=== PATIENT | male | born 1965 | race Caucasian/White ===

== ENCOUNTER 2024-07-03 07:47 | Inpatient (IN) | payer MEDICAID ==
[~2024-07-03] VITALS: Ht 185.4 cm; Wt 92.1 kg
[2024-07-03 07:59] VITALS: BP 170/71
[2024-07-03] MEDS ORDERED: LORAZEPAM1 MG PO (08:18)
[2024-07-03] MEDS ORDERED: MIRTAZAPINE15 M2 PO (08:18)
[2024-07-03] MEDS ORDERED: CLONIDINE HCL0.2 MG PO (08:20)
[2024-07-03] MEDS ORDERED: AMLODIPINE BESYL5 MG PO (08:21)
[2024-07-03] MEDS ORDERED: INSULIN LI100 UNIT/2 SC (08:22)
[2024-07-03] MEDS ORDERED: LANTUS SOL100 UNIT/1 SC (08:22)
[2024-07-03] MEDS ORDERED: VITAMIN D31250 MC1 PO (08:23)
[2024-07-03] MEDS ORDERED: RENVELA800 MG PO (08:25)
[2024-07-03 08:40] LABS: BASO # 0.1 10*3/uL (0.0-0.1); BASO % 0.6 % (0.0-1.0); EOS # 0.3 10*3/uL (0.0-0.4); HEMATOCRIT 29.5 % (42.0-52.0); LYMPH # 1.7 10*3/uL (1.3-4.4); LYMPH % 17.1 % (27.0-41.0); MEAN CELL VOLUME 102.4 fl (80.0-94.0); MEAN CORPUSCULAR HGB 34.4 pg (27.0-31.0); MEAN CORPUSCULAR HGB CONC 33.6 g/dl (33.0-37.0); MEAN PLATELET VOLUME 9.9 fl (9.6-12.3); MONO % 10.1 % (3.0-9.0); NEUT # 6.8 10*3/uL (2.3-7.9); NEUT % 68.9 % (47.0-73.0); PLATELET COUNT AUTOMATED 175 10*3/uL (130-400); RED BLOOD COUNT 2.88 10*6/uL (4.50-5.90); RED CELL DISTRI WIDTH 13.9 % (0-14.5); WHITE BLOOD COUNT 9.9 10*3/uL (4.8-10.8)
[2024-07-03 08:54] LABS: BILIRUBIN Negative (Negative); BLOOD 1+ (Negative); CLARITY Clear (Clear); COLOR Yellow (Yellow); GLUCOSE 1+ (Negative); KETONE Negative (Negative); LEUKO ESTERASE Negative (Negative); NITRITE Negative (Negative); SPECIFIC GRAVITY 1.015 (1.001-1.030); UROBILINOGEN 0.2 E.U./dl (0.0-1.0)
[2024-07-03 09:02] LABS: URINE AMPHETAMINES Negative (1000ng/ml); URINE BARBITURATES Negative (200ng/ml); URINE BENZODIAZEPINES Negative (200ng/ml); URINE CANNABINOIDS (THC) Negative (50ng/ml); URINE COCAINE Negative (300ng/ml); URINE METHADONE Negative (300ng/ml); URINE OPIATES Negative (300ng/ml); URINE PHENCYCLIDINE Negative (25ng/ml)
[2024-07-03 09:05] LABS: POTASSIUM 3.9 mmol/L (3.4-5.1)
[2024-07-03 09:24] LABS: BACTERIA TRACE
[2024-07-03] MEDS ORDERED: AMMONIUM LACTA227 GM T (10:03)
[2024-07-03] MEDS ORDERED: ASPIRIN CHEWABL81 MG PO (10:04)
[2024-07-03] MEDS ORDERED: ATORVASTATIN CA40 M1 PO (10:06)
[2024-07-03] MEDS ORDERED: DOCUSATE SODIU100 M3 PO (10:09)
[2024-07-03] MEDS ORDERED: LACTULOSE10 GM/151 PO (10:10)
[2024-07-03] MEDS ORDERED: MELATONIN10 M4 PO (10:12)
[2024-07-03] MEDS ORDERED: Fluoxetine Hydrochloride 20 MG CAP PO SCH (10:12)
[2024-07-03] MEDS ORDERED: PARICALCITOL PO (10:13)
[2024-07-03] MEDS ORDERED: [UNRECOGNIZED DRUG - OTHER] PO (10:14)
[2024-07-03] MEDS ORDERED: SENNA-LAX8.6 MG PO (10:16)
[2024-07-03] MEDS ORDERED: Ondansetron Hydrochloride 4 MG/2 ML VIAL IV PRN (11:40)
[2024-07-03] MEDS ORDERED: ACETAMINOPHEN 325 MG TAB PO PRN (11:40)
[2024-07-03] MEDS ORDERED: DEXTROSE 10 % IN WATER 250 ML IV PRN (11:40)
[2024-07-03] MEDS ORDERED: Acetaminophen/Hydrocodone 5 MG/325 MG TABLET PO PRN (11:40)
[2024-07-03] MEDS ORDERED: LACTULOSE 20 GM/30 ML UDC PO PRN (12:20)
[2024-07-03 15:35] VITALS: BP 152/68
[2024-07-03 16:00] VITALS: BP 142/66
[2024-07-03] MEDS ORDERED: INSULIN LISPRO 1 UNIT/0.01 ML SQ SCH (16:30)
[2024-07-03] MEDS ORDERED: Sevelamer Hydrochloride 800 MG TAB PO SCH (17:00)
[2024-07-03] MEDS ORDERED: ATORVASTATIN CALCIUM 40 MG TABLET PO SCH (18:00)
[2024-07-03] MEDS ORDERED: DOCUSATE SODIUM 100 MG CAP PO SCH (18:00)
[2024-07-03] MEDS ORDERED: Sennosides A and B 8.6 MG TAB PO SCH (18:00)
[2024-07-03 20:00] VITALS: BP 150/55
[2024-07-03] MEDS ORDERED: LORazepam 1 MG TAB PO SCH (22:00)
[2024-07-03] MEDS ORDERED: Mirtazapine 15 MG TAB PO SCH (22:00)
[2024-07-03] MEDS ORDERED: HEPARIN SODIUM 5,000 UNIT/ML VIAL SC SCH (22:00)
[2024-07-03] MEDS ORDERED: Insulin Glargine, Recombinan 1 UNIT/0.01 ML SC SCH (22:00)
[2024-07-04] VITALS: BP 152/65
[2024-07-04 06:28] LABS: BASO # 0.1 10*3/uL (0.0-0.1); BASO % 0.8 % (0.0-1.0); EOS # 0.3 10*3/uL (0.0-0.4); EOS % 3.8 % (1.0-4.0); HEMATOCRIT 28.1 % (42.0-52.0); LYMPH # 1.6 10*3/uL (1.3-4.4); LYMPH % 18.3 % (27.0-41.0); MEAN CELL VOLUME 103.3 fl (80.0-94.0); MEAN CORPUSCULAR HGB 34.6 pg (27.0-31.0); MEAN CORPUSCULAR HGB CONC 33.5 g/dl (33.0-37.0); MEAN PLATELET VOLUME 10.5 fl (9.6-12.3); MONO # 0.7 10*3/uL (0.1-1.0); MONO % 8.5 % (3.0-9.0); NEUT # 5.8 10*3/uL (2.3-7.9); NEUT % 68.1 % (47.0-73.0); PLATELET COUNT AUTOMATED 155 10*3/uL (130-400); RED BLOOD COUNT 2.72 10*6/uL (4.50-5.90); RED CELL DISTRI WIDTH 13.7 % (0-14.5); WHITE BLOOD COUNT 8.5 10*3/uL (4.8-10.8)
[2024-07-04 06:51] LABS: POTASSIUM 3.8 mmol/L (3.4-5.1); TOTAL PROTEIN 7.2 gm/dL (6.0-8.0)
[2024-07-04] MEDS ORDERED: MANNITOL 12.5 GM/50 ML VIAL IV SCH (07:25)
[2024-07-04] MEDS ORDERED: ALBUMIN 25% 50 ML IV PRN (07:25)
[2024-07-04] MEDS ORDERED: SODIUM CHLORIDE 0.9% 1,000 ML IV SCH (07:25)
[2024-07-04] MEDS ORDERED: SODIUM CHLORIDE 0.9% 1,000 ML BAG IV ONE (08:36)
[2024-07-04] MEDS ORDERED: amLODIPine besylate 5 MG TAB PO SCH (10:00)
[2024-07-04] MEDS ORDERED: cloNIDine Hydrochloride 0.2 MG TAB PO SCH (10:00)
[2024-07-04] MEDS ORDERED: Vitamin B Complex and Vitami4 1 TAB TAB PO SCH (10:00)
[2024-07-04] MEDS ORDERED: ASPIRIN, CHEWABLE 81 MG TAB PO SCH (10:00)
[2024-07-04 12:00] VITALS: BP 144/76
[2024-07-04 16:00] VITALS: BP 123/83
[2024-07-04 20:00] VITALS: BP 120/59
[2024-07-05] VITALS: BP 120/59; BP 130/72
[2024-07-05] MEDS ORDERED: Cyclobenzaprine Hydrochlorid 10 MG TAB PO PRN (06:15)
[2024-07-05] MEDS ORDERED: PARICALCITOL 2 MCG PO SCH (10:00)
[2024-07-05] MEDS ORDERED: FLUOXETINE HYDR20 M1 PO (11:38)
[2024-07-05] MEDS ORDERED: LORAZEPAM1 MG PO (11:38)
[2024-07-05] MEDS ORDERED: ADMELOG100 UNIT/1 SQ (11:38)
[2024-07-05 12:30] VITALS: BP 122/82
== END 2024-07-05 13:26 | DRG 470 ==
LOC: ED 07:47 → 4E 10:14 → EDHOLD 10:14 → 4E 14:33
PROVIDERS: Emergency Medicine; Registered Nurse; ADMIT Family Medicine; ATTEND Family Medicine
PROC: 05HC33Z Insertion of Infusion Device into Left Basilic Vein, Percutaneous Approach (ICD-10-PCS; 2024-07-03)
PROC: B54NZZA Ultrasonography of Left Upper Extremity Veins, Guidance (ICD-10-PCS; 2024-07-03)
PROC: 5A1D70Z Performance of Urinary Filtration, Intermittent, Less than 6 Hours Per Day (ICD-10-PCS; principal; 2024-07-04)
DX: I12.0 Hypertensive chronic kidney disease with stage 5 chronic kidney disease or end stage renal disease (principal); F33.2 Major depressive disorder, recurrent severe without psychotic features; R45.851 Suicidal ideations; N18.6 End stage renal disease; F41.9 Anxiety disorder, unspecified; E11.22 Type 2 diabetes mellitus with diabetic chronic kidney disease; I25.10 Atherosclerotic heart disease of native coronary artery without angina pectoris; Z99.2 Dependence on renal dialysis; D64.9 Anemia, unspecified; M89.8X8 Other specified disorders of bone, other site; F34.1 Dysthymic disorder; Z90.49 Acquired absence of other specified parts of digestive tract; Z89.421 Acquired absence of other right toe(s); Z95.5 Presence of coronary angioplasty implant and graft; Z80.0 Family history of malignant neoplasm of digestive organs